=== PATIENT | male | born 1990 | race Two or more races ===

== ENCOUNTER 2025-07-03 21:47 | Emergency (ER) | payer SELFPAY ==
[2025-07-03 21:47] VITALS: BP 156/98; PULSE 154; RESP 17; TEMP 36.8; O2SAT 96
[2025-07-03 22:15] VITALS: BP 156/98; PULSE 154
[2025-07-03] MEDS: METOPROLOL TARTRATE 25 MG TABLET 100 MG PO (22:15)
--- NOTE | 2025-07-03 22:20 | EDNOTE_ITS ---
ED Medical Clearance RME/HPI General Chief complaint: Medical Clearance Stated complaint: [facility] CLEARANCE Time Seen by Provider: 07/03/25 22:33 Arrival date/time: 07/03/25 21:47 RME / HPI RME / HPI Narrative: See [facility] for Dr. Lundy's HPI Documentation. Related Information Allergies Allergy/AdvReac Type Severity Reaction Status Date / Time No Known Allergies Allergy Verified 07/03/25 22:07 Review of Systems Review of Systems Systems Reviewed: All systems reviewed, normal except as documented Past Medical History Social History SMOKING STATUS: Never smoker ED Exam Narrative Physical exam: See [facility] for Dr. Lundy's Physical Exam Documentation. Course Quality Measures none Orders Category Date Time Status EKG (ED ONLY) *Do not use* NOW Care 07/03/25 22:04 Completed EKG (ED Only) Stat Exams 07/03/25 22:04 Ordered Metoprolol Tartrate [Lopressor] Med 07/03/25 22:05 Discontinued 100 mg PO X1 ONE Vital Signs Vital signs: Vital Signs Temperature 98.3 F 07/03/25 21:47 Pulse Rate 154 H 07/03/25 21:47 Respiratory Rate 17 07/03/25 21:47 Blood Pressure 156/98 H 07/03/25 21:47 Pulse Oximetry (%) 96 07/03/25 21:47 Oxygen Delivery Method Room Air 07/03/25 21:47 Medical Clearance [facility] Narrative [facility] Narrative:: This section includes all my notes and documentations, including HPI, PE, and ED course. Austin Lundy MD HPI: 35 y/o male BIB [facility] for residential medical clearance due to tachycardia. Patient reports no chest pain or shortness of breath or palpitations. No other complaints. ROS: All negative except as documented in HPI. Physical Exam: General: Alert and oriented. No acute distress when remaining still. High BP noted. Eyes: Conjunctivae and lids clear. ENT: No nasal congestion. Neck: Supple. Heart: Tachycardia with regular rhythm noted. Lungs: No respiratory distress. Good air movement. No rhonchi, wheezing, rales. Abdomen: Soft and nontender. Normal bowel sounds. No distension. No rebound or guarding. Back: No CVA tenderness. Skin: Warm and dry. Neuro: Alert and oriented X 3. I reviewed all diagnostic test results: My interpretation of the EKG is: Sinus tachycardia (146 bpm) with nonspecific ST-T changes. At this point, diagnoses include: Tachycardia Treatment here included: Lopressor 100 mg PO Significant movement noted. Based on my best medical judgment, made decision to medically clear the patient and no further evaluation or treatment indicated at this time. Patient understands and agrees to the discharge instructions customized and printed, see below. Discharge Instructions from Dr. Lundy printed for you: 1. After you were treated for fast heart rate, you are medically cleared for residential. 2. See a private doctor on 07/04/2025 or whenever you are released for recheck and further care. To make sure there is no serious underlying heart condition, ask to help you get more tests for your heart that cannot be done here in the ER. Such as Holter Monitor (cardiac monitoring at home from a day to even a month), heart stress test (on treadmill or with medication), echocardiogram (imaging of your heart structures), heart catherization (checking for blockages in your heart arteries), and a referral to see a Complaint Inspector. 3. Seek immediate medical care with worsening or with any concerns. Austin Lundy MD Patient data External records reviewed:: [facility] previous records (No prior ED records available for review) Clinical information provided by:: patient and law enforcement Social determinants that could affect healthcare access:: none Patient has the following chronic illnesses:: None reported How is presenting disease/condition affected by chronic disease/condition?: no chronic disease Evaluation data The following diagnostics were reviewed and interpreted by me:: EKG tracing(s) (My interpretation of the EKG is: Sinus tachycardia (146 bpm) with nonspecific ST-T changes. Austin Lundy MD) Lab and/or radiology exams considered but not ordered:: None Interpretation Summary: I reviewed all diagnostic test results: My interpretation of the EKG is: Sinus tachycardia (146 bpm) with nonspecific ST-T changes. Medications / Prescriptions Medications or Prescriptions considered but not ordered:: None Medication administrations:: Medication Administration History Discontinued Medications Metoprolol Tartrate (Metoprolol Tartrate 25 Mg Tablet) 100 mg PO X1 ONE Stop: 07/03/25 22:06 Last Admin: 07/03/25 22:15 Dose: 100 mg Documented By: CVL Lopressor 1oo mg PO Consultations Consultation(s) initiated? (list below): No Diagnosis Medical Clearance Differential Diagnosis: other (SVT, Palpitations, Anxiety Disorder) Most likely diagnosis given after review of the tests above:: Sinus tachycardia Admission Indicated Admission indicated?: not indicated Explain why admission is indicated or not indicated:: With significant improvement and no condition needing emergent intervention, there was no indication for admission. Admission Request Was there a request for admission?: No Disposition Plan Disposition Plan: Discharge (to [facility]) Discharge Attestation Discharge Attestation: The patient and all family members were given an opportunity to ask questions and understood the discharge instructions. Discharge instructions specifically effects, indications for sooner follow up or return to the emergency department, and the expected course of current diagnosis. Patient condition: Stable Discharge Plan Plan Patient Disposition: Custodial/Court/Law Problem List Clinical Impression: Tachycardia Patient/Caregiver Discharge Instructions Discharge Activity: activity as tolerated Education Materials: Understanding Tachycardia, ED About Arrhythmias Additional Instructions: Discharge Instructions from Dr. Lundy printed for you: 1. After you were treated for fast heart rate, you are medically cleared for residential. 2. See a private doctor on 07/04/2025 or whenever you are released for recheck and further care. To make sure there is no serious underlying heart condition, ask to help you get more tests for your heart that cannot be done here in the ER. Such as Holter Monitor (cardiac monitoring at home from a day to even a month), heart stress test (on treadmill or with medication), echocardiogram (imaging of your heart structures), heart catherization (checking for blockages in your heart arteries), and a referral to see a Complaint Inspector. 3. Seek immediate medical care with worsening or with any concerns. Instrucciones de tadeo del Dr. Lundy impresas para usted: 1. Despu?s de kenan sido tratado por taquicardia, est? m?dicamente apto para ingresar en prisi?n. 2. Consulte con un m?dico particular el 07/04/2025 o cuando sea puesto en jorje para yanet revisi?n y atenci?n m?dica adicional. Para asegurarse de que no haya ninguna afecci?n card?venancio subyacente grave, solicite que le realicen m?s pruebas card?acas que no se pueden realizar aqu? en la luciana de emergencias. Estas pruebas incluyen: monitor Holter (monitorizaci?n card?venancio en casa li un d?a o incluso un mes), prueba de esfuerzo card?aco (en cinta de correr o con medicamentos), ecocardiograma (im?genes de las estructuras del coraz?n), cateterismo card?aco (para detectar obstrucciones en las arterias coronarias) y yanet derivaci?n a un cardi?logo. 3. Busque atenci?n m?dica inmediata si chris s?ntomas empeoran o si tiene alguna inquietud. Print Language: Salvadorean
[2025-07-03 22:59] VITALS: BP 141/93; PULSE 98; RESP 17; TEMP 36.7; O2SAT 96
[2025-07-03 23:08] VITALS: BP 141/90; PULSE 99; RESP 16; O2SAT 97
== END 2025-07-03 23:15 ==
LOC: SERX 23:30
PROVIDERS: Emergency Provider Emergency Medicine
DX: Z02.89 Encounter for other administrative examinations (principal); R00.0 Tachycardia, unspecified; I44.4 Left anterior fascicular block
CPT/HCPCS: 93005; 99282; A9270